=== PATIENT | male | born 1965 | race Caucasian/White ===

== ENCOUNTER 2017-11-24 20:57 | Emergency (ER) | payer MEDICAID ==
[~2017-11-24] VITALS: Ht 170.2 cm; Wt 84.4 kg
[2017-11-24 21:14] VITALS: BP 132/80
--- NOTE | 2017-11-24 21:19 | NUR ---
TO LOBBY, A/W, BED, AMB, VSS ERMD NOTED
--- NOTE | 2017-11-24 22:18 | NUR ---
PT TAKEN TO BED 1
--- NOTE | 2017-11-24 23:00 | NUR ---
PT C/O FEELING LIKE "HEART BEATING FAST" SINCE YESTERDAY. PT DENIES CP, N/V/D. PT STATES HE WAS AT REST WHEN SYMPOTMS BEGAN. PT DENIES PMH, AND NKA. PT STATES HE WAS FEELING "STRESSED OUT".
[2017-11-24 23:34] LABS: ANION GAP 11.7 (8-16); CARBON DIOXIDE 29.1 mmol/L (21-32); CREATININE 0.9 mg/dL (0.7-1.3); POTASSIUM 3.8 mmol/L (3.5-5.1)
[2017-11-24 23:44] LABS: HEMATOCRIT 43.1 % (36-52); HEMOGLOBIN 14.4 g/dL (12.0-18.0); MEAN CORPUSCULAR HEMOGLOBIN 29 pg (27-31); MEAN CORPUSCULAR HGB CONC 34 g/dL (33-37); MEAN CORPUSCULAR VOLUME 86 fL (80-94); PLATELET COUNT (AUTO) 194 K/uL (140-450); RED CELL DISTRIBUTION WIDTH 12.6 % (11.6-13.7); WHITE BLOOD COUNT (AUTO) 8.8 K/uL (4.8-10.8)
[2017-11-24 23:50] LABS: ALBUMIN 3.7 g/dL (3.4-5.0); THYROID STIMULATING HORMONE 2.16 uIU/mL (0.34-3.74); TOTAL BILIRUBIN 0.4 mg/dL (0.0-1.0)
[2017-11-25 00:09] LABS: APPEARANCE,URINE CLEAR (CLEAR); BILIRUBIN,URINE NEGATIVE (NEGATIVE); BLOOD, URINE NEGATIVE (NEGATIVE); COLOR,URINE YELLOW (YELLOW); LEUKOCYTE ESTERASE ,URINE NEGATIVE (NEGATIVE); NITRITE, URINE NEGATIVE (NEGATIVE); PH,URINE 6.5 (5.0-9.0); UGLUCOSE NEGATIVE (NEGATIVE)
[2017-11-25 00:10] VITALS: BP 132/80
--- NOTE | 2017-11-25 00:10 | NUR ---
Patient discharged with v/s stable. Written and verbal after care instructions given and explained. Patient verbalized understanding. Ambulatory with steady gait. All questions addressed prior to discharge. Advised to follow up with PMD.
== END 2017-11-25 00:10 | disposition home or self-care (01) ==
LOC: MED 20:57
DX: R00.2 Palpitations (principal); F41.9 Anxiety disorder, unspecified
CPT/HCPCS: 36415; 80053; 81003; 84443; 85025; 93005; 99285

== ENCOUNTER 2018-03-20 17:42 | Emergency (ER) | payer MEDICAID ==
[~2018-03-20] VITALS: Ht 170.2 cm; Wt 81.6 kg
[2018-03-20 17:44] VITALS: BP 140/77
--- NOTE | 2018-03-20 17:48 | NUR ---
Patient ambulated to bed 12. RN evaluating patient at bedside.
--- NOTE | 2018-03-20 17:55 | NUR ---
PATIENT PRESENTS TO ED WITH COMPLAINTS OF LEFT UPPER BACK PAIN X 3 WEEKS. PATIENT STATES PAIN IS CONSTANT AND IT IS A SHARP STABBING PAIN. DENIES TRAUMA, COUGH, AND SOB. REPORTS PAIN 5/10. DENIES N/V/D; SKIN IS PINK/WARM/DRY; AAOX4 WITH EVEN AND STEADY GAIT; LUNGS CLEAR BL; HR EVEN AND REGULAR; VSS; PATIENT POSITIONED FOR COMFORT; HOB ELEVATED; BEDRAILS UP X1; BED DOWN. ER MD MADE AWARE OF PT STATUS.
--- NOTE | 2018-03-20 18:15 | NUR ---
Dr. Pearson evaluating patient at bedside.
[2018-03-20] MEDS ORDERED: KETOROLAC 60 MG/2 ML VIAL IM ONE (18:20)
[2018-03-20] MEDS ORDERED: DEXAMETHASONE 10 MG/ML VIAL IM ONE (18:20)
--- NOTE | 2018-03-20 18:36 | NUR ---
Patient taken to XRAY via wheelchair by tech.
[2018-03-20 19:04] VITALS: BP 137/79
== END 2018-03-20 19:00 | disposition home or self-care (01) ==
LOC: MED 17:42
DX: S29.011A Strain of muscle and tendon of front wall of thorax, initial encounter (principal); X50.0XXA Overexertion from strenuous movement or load, initial encounter; Y93.89 Activity, other specified; Y92.89 Other specified places as the place of occurrence of the external cause; Y99.8 Other external cause status
CPT/HCPCS: 71046; 96372; 99284; J1100; J1885

== ENCOUNTER 2020-03-08 22:50 | Emergency (ER) | payer SELFPAY ==
[~2020-03-08] VITALS: Ht 170.2 cm; Wt 87.2 kg
[2020-03-08 23:10] VITALS: BP 129/81
[2020-03-09] MEDS ORDERED: KETOROLAC 60 MG/2 ML VIAL IM ONE
[2020-03-09 01:46] VITALS: BP 129/81
== END 2020-03-09 01:46 | disposition home or self-care (01) ==
LOC: MED 22:50
DX: S00.522A Blister (nonthermal) of oral cavity, initial encounter (principal); H92.03 Otalgia, bilateral; R03.0 Elevated blood-pressure reading, without diagnosis of hypertension; X58.XXXA Exposure to other specified factors, initial encounter; Y93.89 Activity, other specified; Y92.89 Other specified places as the place of occurrence of the external cause; Y99.8 Other external cause status
CPT/HCPCS: 96372; 99283; J1885